=== PATIENT | female | born 1950 | race Caucasian/White ===

== ENCOUNTER 2021-04-24 08:51 | Day surgery (SDC) | payer MEDICARE ==
[~2021-04-24] VITALS: Ht 121.9 cm; Wt 90.9 kg
[~2021-04-24 08:51] MED LIST: AMLO5TAB66 PO; ASPI-1451 PO; CARV12.530 PO; LOSA1TAB40 PO; METF-446 PO; ROSU20TA73 PO; SODIUM CHLORIDE 0.9% 1,000 ML IV ONE; SODIUM CHLORIDE 0.9% 1,000 ML ONE
[2021-04-24] MEDS ORDERED: DIAZEPAM 5 MG TABLET PO ONE (09:00)
[2021-04-24] MEDS ORDERED: DiphenhydrAMINE HCL 50 MG CAPSULE PO ONE (09:00)
[2021-04-24] MEDS ORDERED: DiphenhydrAMINE HCL 50 MG CAPSULE ONE (09:00)
[2021-04-24] MEDS ORDERED: DIAZEPAM 5 MG TABLET ONE (09:00)
[2021-04-24] MEDS ORDERED: ASPIRIN 81 MG CHEWABLE TABLET ONE (09:00)
[2021-04-24] MEDS ORDERED: ASPIRIN 81 MG CHEWABLE TABLET PO ONE (09:00)
[2021-04-24] MEDS ORDERED: HEPARIN SODIUM 1000 UNITS/NS 1,000 ML ONE (09:11)
[2021-04-24] MEDS ORDERED: IOHEXOL 300 MG/ML 100 ML VIAL ONE (09:11)
[2021-04-24] MEDS ORDERED: IOHEXOL 300 MG/ML 150 ML VIAL ONE (09:11)
[2021-04-24] MEDS ORDERED: SODIUM BICARBONATE 50 MEQ/50 ML VIAL ONE (09:11)
[2021-04-24] MEDS ORDERED: IOHEXOL 300 MG/ML 50 ML VIAL ONE (09:11)
[2021-04-24] MEDS ORDERED: LIDOCAINE/PF 1% 30 ML VIAL ONE (09:11)
[2021-04-24] MEDS ORDERED: MIDAZOLAM HCL 2 MG/2 ML VIAL ONE (09:35)
[2021-04-24] MEDS ORDERED: FentaNYL CITRATE PF 100 MCG/2 ML VIAL ONE (09:35)
[2021-04-24 09:36] VITALS: BP 142/76
[2021-04-24] MEDS ORDERED: HEPARIN SODIUM 1000 UNITS/NS 1,000 ML IARTER ONE (10:00)
[2021-04-24] MEDS ORDERED: IOHEXOL 300 MG/ML 150 ML VIAL IARTER ONE (10:00)
[2021-04-24] MEDS ORDERED: LIDOCAINE 1% 30 ML/SOD BICARB 8.4% 4 ML SQ ONE (10:00)
[2021-04-24 10:07] VITALS: BP 126/79
== END 2021-04-24 13:35 | disposition home or self-care (01) ==
LOC: CATHLAB 08:51
PROVIDERS: ATTEND Internal Medicine Interventional Cardiology
DX: R94.39 Abnormal result of other cardiovascular function study (principal); R07.9 Chest pain, unspecified; E11.9 Type 2 diabetes mellitus without complications; E66.01 Morbid (severe) obesity due to excess calories; I10 Essential (primary) hypertension; Z88.0 Allergy status to penicillin; Z79.899 Other long term (current) drug therapy; Z79.82 Long term (current) use of aspirin; Z98.890 Other specified postprocedural states
CPT/HCPCS: 93005; 93458; C1760; J1644; J3490 ×2; J7030; Q9967; J2250; J3010